=== PATIENT | male | born 1975 | race Caucasian/White ===

== ENCOUNTER 2018-07-30 08:53 | Emergency (ER) | payer SELFPAY ==
[2018-07-30 09:08] VITALS: BP 140/96
--- NOTE | 2018-07-30 10:11 | UC ---
General HPI - HPI Summary HPI Summary: Injured right arm about 1.5 weeks ago. 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 He went to lift 4 gallons of milk about 32 pounds when he noticed pain in his right arm at bicep region. He lifted again and felt discomfort in tricept and shoulder region. HE has been trying to work throughout all this but has significant pain in his right arm doing anything such as mopping and even notices it when he turns the steering wheel. Meds : reviewed States his forearm feels off - History of Current Complaint Chief Complaint: UCUpperExtremity Stated Complaint: R ARM INJURY Time Seen by Provider: 07/30/18 09:48 Pain Intensity: 5 - Allergy/Home Medications Allergies/Adverse Reactions: Allergies Allergy/AdvReac Type Severity Reaction Status Date / Time No Known Allergies Allergy Verified 07/30/18 09:08 PMH/Surg Hx/FS Hx/Imm Hx Previously Healthy: Yes - Surgical History Surgical History: None - Social History Alcohol Use: Occasionally Substance Use Type: None Smoking Status (MU): Light Every Day Tobacco Smoker Type: Cigarettes Review of Systems All Other Systems Reviewed And Are Negative: Yes Physical Exam Triage Information Reviewed: Yes Appearance: Well-Appearing Vital Signs: Initial Vital Signs Temp 98.6 F 07/30/18 09:04 Pulse 80 07/30/18 09:04 Resp 18 07/30/18 09:04 BP 140/96 07/30/18 09:04 Pulse Ox 100 07/30/18 09:04 Vital Signs Reviewed: Yes Musculoskeletal: Positive: Other: - Pain at insertion site of bicepts tendon on right forearm. Pain in triceps region, lateral and medial epicondyle and pain in shoulder joint. Strenght equal and pulses equal Course/Dx - Course Course Of Treatment: This is a 42 yr old with pain in right upper ext Assessment Suspect biceps tendon tear with associated muscle strain in shoulder and triceps Plan Recommend evaluation by Dr. Terrazas prior to returning to either job Start Naproxen 2x/day for 2 weeks - take with food No heavy lifting Also pending Dr. Terrazas's evaluation, recommend evaluation by [facility] - Diagnoses Provider Diagnosis: Biceps tendinitis of right upper extremity Discharge - Sign-Out/Discharge Documenting (check all that apply): Patient Departure All imaging exams completed and their final reports reviewed: No Studies - Discharge Plan Condition: Good Disposition: HOME Prescriptions: Naproxen [Naproxen 500 mg tab] 500 mg PO BID #28 tablet.dr Forms: *Work Release Referrals: Bladimir Redd MD [Primary Care Provider] - Nain Terrazas MD [Medical Doctor] - Malik Ivy MD [Medical Doctor] - Additional Instructions: Recommend evaluation by Dr. Terrazas prior to returning to either job Start Naproxen 2x/day for 2 weeks - take with food No heavy lifting Also pending Dr. Terrazas's evaluation, recommend evaluation by [facility] Orth[facility] - Billing Disposition and Condition Condition: GOOD Disposition: Home
== END 2018-07-30 10:18 | disposition home or self-care (01) ==
LOC: UCEAST 08:53
DX: M75.21 Bicipital tendinitis, right shoulder (principal); F17.210 Nicotine dependence, cigarettes, uncomplicated
CPT/HCPCS: 99201; G0463

== ENCOUNTER 2018-12-20 10:35 | Emergency (ER) | payer OTHER ==
[2018-12-20 11:03] VITALS: BP 127/82
--- NOTE | 2018-12-20 11:31 | UC ---
Upper Extremity HPI - HPI Summary HPI Summary: Last Mr. Mirza was holding an object which suddenly dropped down putting a big stress on his arm. Last June he had a similar episode where it sounds like he strained the flexors of his right arm. He took off on Sunday last week and had the weekend off. He seemed to be better on Sunday and has a fairly light job on Mondays and Tuesdays. Sunday's his job requires additional lifting and Sunday and and today he's had increasing pain. He denies any paresthesias or weakness. - History of Current Complaint Chief Complaint: UCUpperExtremity Stated Complaint: ARM INJURY Time Seen by Provider: 12/20/18 11:06 Hx Obtained From: Patient Onset/Duration: Sudden Onset Severity Initially: Mild Severity Currently: Moderate Pain Intensity: 4 Character: Dull, Aching Aggravating Factor(s): Movement, Lifting, Flexion, Internal/External Rotation Alleviating Factor(s): Rest Associated Signs And Symptoms: Positive: Negative - Allergies/Home Medications Allergies/Adverse Reactions: Allergies Allergy/AdvReac Type Severity Reaction Status Date / Time No Known Allergies Allergy Verified 12/20/18 10:56 Home Medications: Home Medications NK [No Home Medications Reported] 12/20/18 [History Confirmed 12/20/18] PMH/Surg Hx/FS Hx/Imm Hx Previously Healthy: Yes - Surgical History Surgical History: None - Social History Alcohol Use: Weekly Alcohol Amount: 2 beers /every other day Substance Use Type: None Smoking Status (MU): Light Every Day Tobacco Smoker Type: Cigarettes Amount Used/How Often: 3 cig/ day Review of Systems All Other Systems Reviewed And Are Negative: Yes Constitutional: Positive: Negative Motor: Positive: Negative Neurovascular: Positive: Negative Musculoskeletal: Positive: Negative Neurological: Positive: Negative Physical Exam - Summary Physical Exam Summary: He Is nontoxic in appearance with stable vitals. Triage Information Reviewed: Yes Appearance: Well-Appearing Vital Signs: Initial Vital Signs Temp 98.1 F 12/20/18 10:57 Pulse 69 12/20/18 10:57 Resp 18 12/20/18 10:57 BP 127/82 12/20/18 10:57 Pulse Ox 99 12/20/18 10:57 Vital Signs Reviewed: Yes Neck exam: Normal Respiratory Exam: Normal Cardiovascular Exam: Normal Musculoskeletal Exam: Other - He is tender some over the origins of most of his forearm muscles. He's got mild tenderness to range of motion. Neuro, vascular and motor are all intact. Neurological Exam: Normal Upper Extremity Course/Dx - Course Course Of Treatment: He was to work today and tomorrow and I'm going to give him arrest with a recommendation for light duty - Differential Dx/Diagnosis Provider Diagnosis: Strain of elbow, right Discharge ED - Sign-Out/Discharge Documenting (check all that apply): Patient Departure All imaging exams completed and their final reports reviewed: No Studies - Discharge Plan Condition: Stable Disposition: HOME Patient Education Materials: Muscle Strain (ED) Forms: *Work Release Referrals: Bladimir Redd MD [Primary Care Provider] - - Billing Disposition and Condition Condition: STABLE Disposition: Home
== END 2018-12-20 11:35 | disposition home or self-care (01) ==
LOC: UCEAST 10:35
DX: S46.811A Strain of other muscles, fascia and tendons at shoulder and upper arm level, right arm, initial encounter (principal); F17.210 Nicotine dependence, cigarettes, uncomplicated; X50.0XXA Overexertion from strenuous movement or load, initial encounter; Y93.89 Activity, other specified; Y92.9 Unspecified place or not applicable
CPT/HCPCS: 99211; G0463